=== PATIENT | male | born 1990 | race Caucasian/White ===

== ENCOUNTER 2018-08-13 09:53 | Emergency (ER) | payer OTHER ==
[~2018-08-13] VITALS: Ht 177.8 cm; Wt 106.6 kg
[~2018-08-13 09:53] MED LIST: ALBU90OI INH; AMOCLA500 PO; AZIT250 PO; Bactrim Ds Tab1 EACH PO; CEPH500 PO; CODACE30 PO; CODGUAEL PO; CYCL10 PO; HYDACE5 PO; IBUP800 PO; METO10 PO; MUPI2TC TOP; OMEP20ER PO; OXYACE5T PO; PENVK500 PO; PROM25 PO; RXCEPH500 PO; RXCLIN PO; RXSULTRIDS PO; SULTRIDS PO; TRAM50 PO
[2018-08-13] MEDS ORDERED: ALBU90OI61 INH (11:33)
[2018-08-13] MEDS ORDERED: PRED20 PO (11:33)
[2018-08-13] MEDS ORDERED: Cheratussin AC118 ML PO (11:33)
== END 2018-08-13 11:54 | disposition home or self-care (01) ==
LOC: ER 09:53
DX: R05 Cough (principal); F17.210 Nicotine dependence, cigarettes, uncomplicated
CPT/HCPCS: 71046; 93005; 93010; 94640; 99283-25